=== PATIENT | female | born 1995 | race Hispanic/Latino ===

== ENCOUNTER 2018-12-08 10:42 | Emergency (ER) | payer OTHER, SELFPAY ==
[2018-12-08 10:50] VITALS: BP 144/81; PULSE 88; RESP 16; TEMP 36.6; O2SAT 100
--- NOTE | 2018-12-08 10:56 | DI.US.S_ITS ---
PROCEDURE: US OB <= 14 WEEKS FETUS INDICATIONS: Pelvic pain, . OUTSIDE/PRIOR DATING DATA: Last menstrual period (LMP): 10/11/18. LMP-based estimated date of delivery (GARRETT): 07/18/19. First dating scan (date and location): 12/08/18. Estimated date of delivery (GARRETT) from first dating scan: 07/20/19. TECHNIQUE: Real-time scanning was performed of the fetus and maternal pelvic organs, with image documentation. Endovaginal scanning was also performed to better visualize the fetus and maternal ovaries. COMPARISON: None. FINDINGS: Embryo: Single live intrauterine is identified with cardiac motion detected at 160 beats per minute. A yolk sac is well-visualized. A pole is also well-visualized with a corresponding crown-rump length of 1.6 cm, which correlates with an estimated gestational age of 8 weeks 0 days. A small to moderate-sized subchorionic hemorrhage is identified that encompasses approximately 30% of the gestational sac. Maternal organs: Ovaries are unremarkable. Limited images through the kidneys demonstrate no hydronephrosis. IMPRESSION: 1. Single live intrauterine at 8 weeks 0 days (GARRETT 07/20/19) is concordant with the LMP due date. 2. Small to moderate size subchorionic hemorrhage. The need for followup imaging should be based on clinical grounds. Dictated by: Twan Gordon M.D. on 12/08/2018 at 10:59 Approved by: Twan Gordon M.D. on 12/08/2018 at 11:03
[2018-12-08 11:20] LABS: Add Manual Diff / Slide Review NO; Basophils Absolute Auto 0 /uL (0-100); Basophils Percent Auto 0.2 % (0-2); Eosinophils Absolute Auto 100 /uL (0-450); Eosinophils Percent Auto 1.5 % (2-4); Hemoglobin 14.5 g/dL (12.0-16.0); Lymphocytes Absolute Auto 1600 /uL (1100-4500); Lymphocytes Percent Auto 23.5 % (25-40); Mean Corpuscular HGB Conc 34.5 % (30-36); Mean Corpuscular Volume 83.8 fL (80-100); Monocytes Absolute Auto 600 /uL (0-900); Monocytes Percent Auto 8.9 % (3-14); Neutrophils Absolute Auto 4600 /uL (1500-7000); Neutrophils Percent Auto 65.9 % (50-75); Platelet Count 208 X10^3/uL (150-400); Red Blood Cell Count 5.01 X10^6/uL (4.0-5.2)
[2018-12-08 11:38] LABS: Alanine Aminotransferase 17 IU/L (9-52); Albumin 4.3 g/dL (3.5-5.0); Albumin Globulin Ratio 1.2 (1.0-2.8); Alkaline Phosphatase 51 U/L (38-126); Aspartate Aminotransferase 22 IU/L (14-36); BUN Creatinine Ratio 13.3 (6-22); Bilirubin Total 0.7 mg/dL (0.2-1.3); Blood Urea Nitrogen 8 mg/dL (7-17); Calcium 9.3 mg/dL (8.4-10.2); Carbon Dioxide 26 mmol/L (22-32); Chloride 100 mmol/L (98-107); Estimated Glomerular Filt Rate > 60.0 mL/min (>60); Globulin 3.6 g/dL (1.7-4.1); Glucose 95 mg/dL (70-100); HEMOLYSIS < 15 (0-50); Potassium 4.6 mmol/L (3.4-5.1); Sodium 134 mmol/L (137-145); Total Protein 7.9 g/dL (6.3-8.2)
[2018-12-08 11:50] LABS: RBC Urine None Seen (0-5/HPF)
[2018-12-08 12:01] LABS: Squamous Epithelial Cell Urine 10-30 /HPF (0-5/HPF); WBC Urine 0-1/HPF (0-5/HPF)
[2018-12-08 12:02] LABS: Bacteria Urine Moderate (10-30)
--- NOTE | 2018-12-08 12:20 | ED.ABDPAIN ---
HPI - Abdominal Pain <EMORY Rai-BC - Last Filed: 12/08/18 15:07> General Chief Complaint: Abdominal Pain Stated Complaint: six weeks , abdominal pain Time Seen by Provider: 12/08/18 11:43 Source: patient and family Mode of arrival: ambulatory Limitations: no limitations History of Present Illness HPI narrative: The patient is a 23-year-old female Icelandic speaking well-appearing woman who presents with a chief complaint of abdominal pain. She states that she is approximately 6 weeks with last menstrual period on October 11. She had a positive home test [place] She is , with a living daughter. She states her pain is in her lower stomach, as well as upper stomach. She states that she has had nausea throughout this . She has not tried anything for it. Did she denies any fevers, vomiting or diarrhea. She denies any dysuria urgency or frequency. She denies any vaginal bleeding. She states she has some discharge, but that was evaluated at an outside facility on the of this month. She denies any possibility of sexually transmitted infections. The patient is Icelandic-speaking, declined a component assembler for both myself and nursing staff and stated she would rather have her friend translate. Related Data Home Medications Medication Instructions Recorded Confirmed PNV cmb#95-ferrous fumarate-FA 1 tab PO DAILY 12/08/18 12/08/18 [] Previous Rx's Medication Instructions Recorded cephalexin 500 mg PO BID #14 cap 12/08/18 ondansetron 4 mg PO Q6H PRN #20 tab 12/08/18 Allergies Allergy/AdvReac Type Severity Reaction Status Date / Time No Known Drug Allergies Allergy Verified 12/08/18 10:53 Review of Systems <JUNO RaiBC - Last Filed: 12/08/18 15:07> Review of Systems GENERAL: Denies chills, fatigue, malaise, fever, sweats. HEENT: Denies sinus pain, ear pain, sore throat, difficulty swallowing, dizziness. RESPIRATORY: Denies dyspnea, cough, wheezing, hemoptysis, sputum. CARDIOVASCULAR: Denies chest pain, palpitations, orthopnea, edema, GASTROINTESTINAL: See HPI : Denies dysuria, frequency, incontinence, hematuria, urinary retention. MUSCULOSKELETAL: denies weakness, joint pain, or bony pain SKIN: Denies rash, skin lesions, or other NEUROLOGIC: Denies weakness, headache, numbness, change in speech, confusion, seizures, incoordination. PSYCHIATRIC: No concerning psychosocial issues. 12 point review of systems is negative except for those stated above PFSH <EMORY Rai- - Last Filed: 12/08/18 15:07> Social History Smoking Status: Never smoker Social History Smoking Status: Never smoker Exam <EMORY Rai- - Last Filed: 12/08/18 15:07> Narrative Exam Narrative: GENERAL: This is a well-nourished, well-developed patient, in no acute distress HEAD: Atraumatic. Normocephalic. No temporal or scalp tenderness. EYES: Pupils equal round and reactive. Extraocular motions intact. No scleral icterus. No injection or drainage. ENT: Nose without bleeding, purulent drainage or septal hematoma. Throat without erythema, tonsillar hypertrophy or exudate. Uvula midline. Airway patent. NECK: Trachea midline. No JVD or lymphadenopathy. Supple, nontender, no meningeal signs. CARDIOVASCULAR: Regular rate and rhythm without murmurs, gallops, or rubs. RESPIRATORY: Clear to auscultation. Breath sounds equal bilaterally. No wheezes, rales, or rhonchi. No cough. No increased respiratory effort. No accessory muscle use. GASTROINTESTINAL: Abdomen soft, diffusely tender suprapubic and periumbilical area, nondistended. No hepato-splenomegaly, or palpable masses. No guarding. Soft nonrigid abdomen. Active bowel sounds all 4 quadrants. EXTREMITIES: No clubbing, cyanosis, or edema. No joint tenderness, effusion, or edema noted. BACK: Nontender without deformity or crepitance. No flank tenderness. NEURO: AOx3. SKIN: No rash or erythema. Initial Vital Signs Initial Vital Signs: Vital Signs Temperature 97.8 F 12/08/18 10:50 Pulse Rate 88 12/08/18 10:50 Respiratory Rate 16 12/08/18 10:50 Blood Pressure 144/81 H 12/08/18 10:50 Pulse Oximetry 100 12/08/18 10:50 <Rach Frederick DO - Last Filed: 12/09/18 06:11> Initial Vital Signs Initial Vital Signs: Vital Signs Temperature 97.8 F 12/08/18 10:50 Pulse Rate 88 12/08/18 10:50 Respiratory Rate 16 12/08/18 10:50 Blood Pressure 144/81 H 12/08/18 10:50 Pulse Oximetry 100 12/08/18 10:50 Course <HAM Rai - Last Filed: 12/08/18 15:07> Orders Ordered: Discontinued Medications Calcium Carbonate (Tums) 500 mg PO NOW ONE Stop: 12/08/18 11:59 Last Admin: 12/08/18 12:38 Dose: 500 mg Ondansetron HCl (Zofran Odt) 4 mg SL NOW ONE Stop: 12/08/18 11:59 Last Admin: 12/08/18 12:38 Dose: 4 mg Vital Signs - 8 hr 12/08/18 10:50 12/08/18 13:10 Temperature 97.8 F Pulse Rate 88 90 Respiratory Rate 16 12 Blood Pressure 144/81 H Blood Pressure [Left Arm] 112/78 Pulse Oximetry 100 98 <Rach Frederick DO - Last Filed: 12/09/18 06:11> Orders Ordered: Discontinued Medications Calcium Carbonate (Tums) 500 mg PO NOW ONE Stop: 12/08/18 11:59 Last Admin: 12/08/18 12:38 Dose: 500 mg Ondansetron HCl (Zofran Odt) 4 mg SL NOW ONE Stop: 12/08/18 11:59 Last Admin: 12/08/18 12:38 Dose: 4 mg Vital Signs - 8 hr 12/08/18 10:50 12/08/18 13:10 Temperature 97.8 F Pulse Rate 88 90 Respiratory Rate 16 12 Blood Pressure 144/81 H Blood Pressure [Left Arm] 112/78 Pulse Oximetry 100 98 MDM - Abdominal Pain <HAM Rai - Last Filed: 12/08/18 15:07> Lab Data Result diagrams: 12/08/18 11:10 12/08/18 11:10 Lab Results 12/08/18 12/08/18 12/08/18 Range/Units 11:10 11:10 11:10 WBC 7.0 (4.5-11.0) X10^3/uL RBC 5.01 (4.0-5.2) X10^6/uL Hgb 14.5 (12.0-16.0) g/dL Hct 42.0 (36-46) % MCV 83.8 (80-100) fL MCH 29.0 (26-34) PG MCHC 34.5 (30-36) % RDW 13.0 (11.6-14.8) % Plt Count 208 (150-400) X10^3/uL Neut % (Auto) 65.9 (50-75) % Lymph % (Auto) 23.5 L (25-40) % Martin % (Auto) 8.9 (3-14) % Eos % (Auto) 1.5 L (2-4) % Baso % (Auto) 0.2 (0-2) % Neut # (Auto) 4600 (6149-5538) /uL Lymph # (Auto) 1600 (1909-6629) /uL Martin # (Auto) 600 (0-900) /uL Eos # (Auto) 100 (0-450) /uL Baso # (Auto) 0 (0-100) /uL Sodium 134 L (137-145) mmol/L Potassium 4.6 (3.4-5.1) mmol/L Chloride 100 (98-107) mmol/L Carbon Dioxide 26 (22-32) mmol/L BUN 8 (7-17) mg/dL Creatinine 0.60 (0.52-1.04) mg/dL Estimated GFR > 60.0 (>60) mL/min BUN/Creatinine Ratio 13.3 (6-22) Glucose 95 (70-100) mg/dL Calcium 9.3 (8.4-10.2) mg/dL Total Bilirubin 0.7 (0.2-1.3) mg/dL AST 22 (14-36) IU/L ALT 17 (9-52) IU/L Alkaline Phosphatase 51 (38-126) U/L Total Protein 7.9 (6.3-8.2) g/dL Albumin 4.3 (3.5-5.0) g/dL Globulin 3.6 (1.7-4.1) g/dL Albumin/Globulin Ratio 1.2 (1.0-2.8) HCG, Quant 183852 mIU/mL Urine RBC (0-5/HPF) Urine WBC (0-5/HPF) Ur Squamous Epith Cells (0-5/HPF) Urine Bacteria (None) Ur Culture Indicated? Micro UA Comment Blood Type O Positive 12/08/18 Range/Units 11:14 WBC (4.5-11.0) X10^3/uL RBC (4.0-5.2) X10^6/uL Hgb (12.0-16.0) g/dL Hct (36-46) % MCV (80-100) fL MCH (26-34) PG MCHC (30-36) % RDW (11.6-14.8) % Plt Count (150-400) X10^3/uL Neut % (Auto) (50-75) % Lymph % (Auto) (25-40) % Martin % (Auto) (3-14) % Eos % (Auto) (2-4) % Baso % (Auto) (0-2) % Neut # (Auto) (8695-2786) /uL Lymph # (Auto) (9180-0071) /uL Martin # (Auto) (0-900) /uL Eos # (Auto) (0-450) /uL Baso # (Auto) (0-100) /uL Sodium (137-145) mmol/L Potassium (3.4-5.1) mmol/L Chloride (98-107) mmol/L Carbon Dioxide (22-32) mmol/L BUN (7-17) mg/dL Creatinine (0.52-1.04) mg/dL Estimated GFR (>60) mL/min BUN/Creatinine Ratio (6-22) Glucose (70-100) mg/dL Calcium (8.4-10.2) mg/dL Total Bilirubin (0.2-1.3) mg/dL AST (14-36) IU/L ALT (9-52) IU/L Alkaline Phosphatase (38-126) U/L Total Protein (6.3-8.2) g/dL Albumin (3.5-5.0) g/dL Globulin (1.7-4.1) g/dL Albumin/Globulin Ratio (1.0-2.8) HCG, Quant mIU/mL Urine RBC None seen (0-5/HPF) Urine WBC 0-1/hpf (0-5/HPF) Ur Squamous Epith Cells 10-30 /hpf H (0-5/HPF) Urine Bacteria Moderate (10-30) H (None) Ur Culture Indicated? Culture not indicate Micro UA Comment Blood Type Point of care testing: Point of Care Testing Test Results Positive Urine Dip Bedside Urine Glucose Negative Bedside Urine Bilirubin - Negative Bedside Urine Ketone - Negative Urine Specific [place] 1.020 Bedside Urine Occult Blood - Negative Bedside Urine pH 6.0 Bedside Urine Protein - Negative Bedside Urine Urobilinogen - Negative Bedside Urine Nitrite - Negative Bedside Urine Leukocytes +/- 15 Esterase Imaging Data us: Radiologist's impression: [address] [address] Ultrasound Report Signed Patient: Praveena Roe [facility]#: [id number] : 1995Acct:[id number] Age/Sex: 23 FDate of Service: 12/08/18 Loc: ED Accession Number: [id number] Procedure: US OB <= 14 weeks fetus Ordering Provider: Rach Frederick D.O. PROCEDURE: US OB <= 14 WEEKS FETUS INDICATIONS: Pelvic pain, . OUTSIDE/PRIOR DATING DATA: Last menstrual period (LMP): 10/11/18. LMP-based estimated date of delivery (GARRETT): 07/18/19. First dating scan (date and location): 12/08/18. Estimated date of delivery (GARRETT) from first dating scan: 07/20/19. TECHNIQUE: Real-time scanning was performed of the fetus and maternal pelvic organs, with image documentation. Endovaginal scanning was also performed to better visualize the fetus and maternal ovaries. COMPARISON: None. FINDINGS: Embryo: Single live intrauterine is identified with cardiac motion detected at 160 beats per minute. A yolk sac is well-visualized. A pole is also well-visualized with a corresponding crown-rump length of 1.6 cm, which correlates with an estimated gestational age of 8 weeks 0 days. A small to moderate-sized subchorionic hemorrhage is identified that encompasses approximately 30% of the gestational sac. Maternal organs: Ovaries are unremarkable. Limited images through the kidneys demonstrate no hydronephrosis. IMPRESSION: 1. Single live intrauterine at 8 weeks 0 days (GARRETT 07/20/19) is concordant with the LMP due date. 2. Small to moderate size subchorionic hemorrhage. The need for followup imaging should be based on clinical grounds. Dictated by: Twan Gordon M.D. on 12/08/2018 at 10:59 Approved by: Twan Gordon M.D. on 12/08/2018 at 11:03 [facility] Narrative Medical decision making narrative: The patient is a 23-year-old female presents with abdominal pain during . Her urine is concerning for urinary tract infection, so I started her on cephalexin. Her ultrasound is normal other than a small subchorionic hemorrhage. However she denies any vaginal bleeding at this point time. I discussed at length follow up with her PCP OB. We have urine culture pending at this time. I discussed coming back to the ER for any acute concerns such as flank pain, high fever, inability keep down fluids etc. I did give her small prescription of Zofran as well. Patient has no questions or concerns upon discharge and states plan of follow-up as well as return precautions. <Rach Frederick, DO - Last Filed: 12/09/18 06:11> Lab Data Lab Results 12/08/18 12/08/18 12/08/18 Range/Units 11:10 11:10 11:10 WBC 7.0 (4.5-11.0) X10^3/uL RBC 5.01 (4.0-5.2) X10^6/uL Hgb 14.5 (12.0-16.0) g/dL Hct 42.0 (36-46) % MCV 83.8 (80-100) fL MCH 29.0 (26-34) PG MCHC 34.5 (30-36) % RDW 13.0 (11.6-14.8) % Plt Count 208 (150-400) X10^3/uL Neut % (Auto) 65.9 (50-75) % Lymph % (Auto) 23.5 L (25-40) % Martin % (Auto) 8.9 (3-14) % Eos % (Auto) 1.5 L (2-4) % Baso % (Auto) 0.2 (0-2) % Neut # (Auto) 4600 (1218-9559) /uL Lymph # (Auto) 1600 (1047-7673) /uL Martin # (Auto) 600 (0-900) /uL Eos # (Auto) 100 (0-450) /uL Baso # (Auto) 0 (0-100) /uL Sodium 134 L (137-145) mmol/L Potassium 4.6 (3.4-5.1) mmol/L Chloride 100 (98-107) mmol/L Carbon Dioxide 26 (22-32) mmol/L BUN 8 (7-17) mg/dL Creatinine 0.60 (0.52-1.04) mg/dL Estimated GFR > 60.0 (>60) mL/min BUN/Creatinine Ratio 13.3 (6-22) Glucose 95 (70-100) mg/dL Calcium 9.3 (8.4-10.2) mg/dL Total Bilirubin 0.7 (0.2-1.3) mg/dL AST 22 (14-36) IU/L ALT 17 (9-52) IU/L Alkaline Phosphatase 51 (38-126) U/L Total Protein 7.9 (6.3-8.2) g/dL Albumin 4.3 (3.5-5.0) g/dL Globulin 3.6 (1.7-4.1) g/dL Albumin/Globulin Ratio 1.2 (1.0-2.8) HCG, Quant 798017 mIU/mL Urine RBC (0-5/HPF) Urine WBC (0-5/HPF) Ur Squamous Epith Cells (0-5/HPF) Urine Bacteria (None) Ur Culture Indicated? Micro UA Comment Blood Type O Positive 12/08/18 Range/Units 11:14 WBC (4.5-11.0) X10^3/uL RBC (4.0-5.2) X10^6/uL Hgb (12.0-16.0) g/dL Hct (36-46) % MCV (80-100) fL MCH (26-34) PG MCHC (30-36) % RDW (11.6-14.8) % Plt Count (150-400) X10^3/uL Neut % (Auto) (50-75) % Lymph % (Auto) (25-40) % Martin % (Auto) (3-14) % Eos % (Auto) (2-4) % Baso % (Auto) (0-2) % Neut # (Auto) (0557-9832) /uL Lymph # (Auto) (6216-7772) /uL Martin # (Auto) (0-900) /uL Eos # (Auto) (0-450) /uL Baso # (Auto) (0-100) /uL Sodium (137-145) mmol/L Potassium (3.4-5.1) mmol/L Chloride (98-107) mmol/L Carbon Dioxide (22-32) mmol/L BUN (7-17) mg/dL Creatinine (0.52-1.04) mg/dL Estimated GFR (>60) mL/min BUN/Creatinine Ratio (6-22) Glucose (70-100) mg/dL Calcium (8.4-10.2) mg/dL Total Bilirubin (0.2-1.3) mg/dL AST (14-36) IU/L ALT (9-52) IU/L Alkaline Phosphatase (38-126) U/L Total Protein (6.3-8.2) g/dL Albumin (3.5-5.0) g/dL Globulin (1.7-4.1) g/dL Albumin/Globulin Ratio (1.0-2.8) HCG, Quant mIU/mL Urine RBC None seen (0-5/HPF) Urine WBC 0-1/hpf (0-5/HPF) Ur Squamous Epith Cells 10-30 /hpf H (0-5/HPF) Urine Bacteria Moderate (10-30) H (None) Ur Culture Indicated? Culture not indicate Micro UA Comment Blood Type Point of care testing: Point of Care Testing Test Results Positive Urine Dip Bedside Urine Glucose Negative Bedside Urine Bilirubin - Negative Bedside Urine Ketone - Negative Urine Specific [place] 1.020 Bedside Urine Occult Blood - Negative Bedside Urine pH 6.0 Bedside Urine Protein - Negative Bedside Urine Urobilinogen - Negative Bedside Urine Nitrite - Negative Bedside Urine Leukocytes +/- 15 Esterase Discharge Plan Departure Patient Disposition: Home Clinical Impression: UTI (urinary tract infection) during Qualifiers: Trimester: first trimester Qualified Code(s): O23.41 - Unspecified infection of urinary tract in , first trimester Discharge Date/Time: 12/08/18 13:12 Interventions: ED Discharge Assessment Last Done: 12/08/18 13:11 Instructions: DI for Urinary Tract Infection (UTI), DI for Vaginal Bleeding During , DI for Abdominal Pain -- Early Activity Restrictions/Additional Instructions: Your urine test today is concerning for a urinary tract infection. I have given you a prescription of antibiotics. Your ultrasound shows an 8 week . There is a small subchorionic hemorrhage. Please follow up with her primary care OB. Please monitor for worsening such as flank pain and fever. Please come back to the emergency department for any acute concerns. Please call your PCP/PCP OB for follow-up in the next few days. Prescriptions: New cephalexin 500 mg capsule 500 mg PO BID Qty: 14 RF: 0 ondansetron 4 mg tablet,disintegrating 4 mg PO Q6H PRN (Reason: nausea and vomiting) Qty: 20 RF: 0 No Action PNV cmb#95-ferrous fumarate-FA [] 28 mg iron- 800 mcg tablet 1 tab PO DAILY RF: 0 Referrals: [facility] [employer]IN[employer] INVESTIGATOR [Provider Group] <Rach Frederick DO - Last Filed: 12/09/18 06:11> Cosign ED Attending Cosignature Attestation: I was immediately available in the department for consultation. This documentation has been reviewed and I agree with assessment and plan. Supervised by Rach Frederick DO
--- NOTE | 2018-12-08 12:25 | ED_ITS ---
HPI - Abdominal Pain <EMORY Rai-BC - Last Filed: 12/08/18 15:07> General Chief Complaint: Abdominal Pain Stated Complaint: six weeks , abdominal pain Time Seen by Provider: 12/08/18 11:43 Source: patient and family Mode of arrival: ambulatory Limitations: no limitations History of Present Illness HPI narrative: The patient is a 23-year-old female [place]ian speaking [facility] who presents with a chief complaint of abdominal pain. She states that she is approximately 6 weeks with last menstrual period on October 11. She had a positive home test and [place] She is , with a living daughter. She states her pain is in her lower stomach, as well as upper stomach. She states that she has had nausea throughout this . She has not tried anything for it. Did she denies any fevers, vomiting or diarrhea. She denies any dysuria urgency or frequency. She denies any vaginal bleeding. She states she has some discharge, but that was evaluated at an outside facility on the of this month. She denies any possibility of sexually transmitted infections. The patient is [place]ian- speaking, declined a financial reporting analyst for both myself and nursing staff and stated she would rather have her friend translate. Related Data Home Medications Medication Instructions Recorded Confirmed PNV cmb#95-ferrous fumarate-FA 1 tab PO DAILY 12/08/18 12/08/18 [] Previous Rx's Medication Instructions Recorded cephalexin 500 mg PO BID #14 cap 12/08/18 ondansetron 4 mg PO Q6H PRN #20 tab 12/08/18 Allergies Allergy/AdvReac Type Severity Reaction Status Date / Time No Known Drug Allergies Allergy Verified 12/08/18 10:53 Review of Systems <JUNO RaiBC - Last Filed: 12/08/18 15:07> Review of Systems GENERAL: Denies chills, fatigue, malaise, fever, sweats. HEENT: Denies sinus pain, ear pain, sore throat, difficulty swallowing, dizziness. RESPIRATORY: Denies dyspnea, cough, wheezing, hemoptysis, sputum. CARDIOVASCULAR: Denies chest pain, palpitations, orthopnea, edema, GASTROINTESTINAL: See HPI : Denies dysuria, frequency, incontinence, hematuria, urinary retention. MUSCULOSKELETAL: denies weakness, joint pain, or bony pain SKIN: Denies rash, skin lesions, or other NEUROLOGIC: Denies weakness, headache, numbness, change in speech, confusion, seizures, incoordination. PSYCHIATRIC: No concerning psychosocial issues. 12 point review of systems is negative except for those stated above PFSH <EMORY Rai- - Last Filed: 12/08/18 15:07> Social History Smoking Status: Never smoker Social History Smoking Status: Never smoker Exam <EMORY Rai- - Last Filed: 12/08/18 15:07> Narrative Exam Narrative: GENERAL: This is a well-nourished, well-developed patient, in no acute distress HEAD: Atraumatic. Normocephalic. No temporal or scalp tenderness. EYES: Pupils equal round and reactive. Extraocular motions intact. No scleral icterus. No injection or drainage. ENT: Nose without bleeding, purulent drainage or septal hematoma. Throat without erythema, tonsillar hypertrophy or exudate. Uvula midline. Airway patent. NECK: Trachea midline. No JVD or lymphadenopathy. Supple, nontender, no meningeal signs. CARDIOVASCULAR: Regular rate and rhythm without murmurs, gallops, or rubs. RESPIRATORY: Clear to auscultation. Breath sounds equal bilaterally. No wheezes, rales, or rhonchi. No cough. No increased respiratory effort. No accessory muscle use. GASTROINTESTINAL: Abdomen soft, diffusely tender suprapubic and periumbilical area, nondistended. No hepato-splenomegaly, or palpable masses. No guarding. Soft nonrigid abdomen. Active bowel sounds all 4 quadrants. EXTREMITIES: No clubbing, cyanosis, or edema. No joint tenderness, effusion, or edema noted. BACK: Nontender without deformity or crepitance. No flank tenderness. NEURO: AOx3. SKIN: No rash or erythema. Initial Vital Signs Initial Vital Signs: Vital Signs Temperature 97.8 F 12/08/18 10:50 Pulse Rate 88 12/08/18 10:50 Respiratory Rate 16 12/08/18 10:50 Blood Pressure 144/81 H 12/08/18 10:50 Pulse Oximetry 100 12/08/18 10:50 <Rach Frederick DO - Last Filed: 12/09/18 06:11> Initial Vital Signs Initial Vital Signs: Vital Signs Temperature 97.8 F 12/08/18 10:50 Pulse Rate 88 12/08/18 10:50 Respiratory Rate 16 12/08/18 10:50 Blood Pressure 144/81 H 12/08/18 10:50 Pulse Oximetry 100 12/08/18 10:50 Course <HAM Rai - Last Filed: 12/08/18 15:07> Orders Ordered: Discontinued Medications Calcium Carbonate (Tums) 500 mg PO NOW ONE Stop: 12/08/18 11:59 Last Admin: 12/08/18 12:38 Dose: 500 mg Ondansetron HCl (Zofran Odt) 4 mg SL NOW ONE Stop: 12/08/18 11:59 Last Admin: 12/08/18 12:38 Dose: 4 mg Vital Signs - 8 hr 12/08/18 10:50 12/08/18 13:10 Temperature 97.8 F Pulse Rate 88 90 Respiratory Rate 16 12 Blood Pressure 144/81 H Blood Pressure [Left Arm] 112/78 Pulse Oximetry 100 98 <Rach Frederick DO - Last Filed: 12/09/18 06:11> Orders Ordered: Discontinued Medications Calcium Carbonate (Tums) 500 mg PO NOW ONE Stop: 12/08/18 11:59 Last Admin: 12/08/18 12:38 Dose: 500 mg Ondansetron HCl (Zofran Odt) 4 mg SL NOW ONE Stop: 12/08/18 11:59 Last Admin: 12/08/18 12:38 Dose: 4 mg Vital Signs - 8 hr 12/08/18 10:50 12/08/18 13:10 Temperature 97.8 F Pulse Rate 88 90 Respiratory Rate 16 12 Blood Pressure 144/81 H Blood Pressure [Left Arm] 112/78 Pulse Oximetry 100 98 MDM - Abdominal Pain <HAM Rai - Last Filed: 12/08/18 15:07> Lab Data Result diagrams: 12/08/18 11:10 12/08/18 11:10 Lab Results 12/08/18 12/08/18 12/08/18 Range/Units 11:10 11:10 11:10 WBC 7.0 (4.5-11.0) X10^3/uL RBC 5.01 (4.0-5.2) X10^6/uL Hgb 14.5 (12.0-16.0) g/dL Hct 42.0 (36-46) % MCV 83.8 (80-100) fL MCH 29.0 (26-34) PG MCHC 34.5 (30-36) % RDW 13.0 (11.6-14.8) % Plt Count 208 (150-400) X10^3/uL Neut % (Auto) 65.9 (50-75) % Lymph % (Auto) 23.5 L (25-40) % [place] % (Auto) 8.9 (3-14) % Eos % (Auto) 1.5 L (2-4) % Baso % (Auto) 0.2 (0-2) % Neut # (Auto) 4600 (9332-7820) /uL Lymph # (Auto) 1600 (7331-9633) /uL [place] # (Auto) 600 (0-900) /uL Eos # (Auto) 100 (0-450) /uL Baso # (Auto) 0 (0-100) /uL Sodium 134 L (137-145) mmol/L Potassium 4.6 (3.4-5.1) mmol/L Chloride 100 (98-107) mmol/L Carbon Dioxide 26 (22-32) mmol/L BUN 8 (7-17) mg/dL Creatinine 0.60 (0.52-1.04) mg/dL Estimated GFR > 60.0 (>60) mL/min BUN/Creatinine Ratio 13.3 (6-22) Glucose 95 (70-100) mg/dL Calcium 9.3 (8.4-10.2) mg/dL Total Bilirubin 0.7 (0.2-1.3) mg/dL AST 22 (14-36) IU/L ALT 17 (9-52) IU/L Alkaline Phosphatase 51 (38-126) U/L Total Protein 7.9 (6.3-8.2) g/dL Albumin 4.3 (3.5-5.0) g/dL Globulin 3.6 (1.7-4.1) g/dL Albumin/Globulin Ratio 1.2 (1.0-2.8) HCG, Quant 471936 mIU/mL Urine RBC (0-5/HPF) Urine WBC (0-5/HPF) Ur Squamous Epith Cells (0-5/HPF) Urine Bacteria (None) Ur Culture Indicated? Micro UA Comment Blood Type O Positive 12/08/18 Range/Units 11:14 WBC (4.5-11.0) X10^3/uL RBC (4.0-5.2) X10^6/uL Hgb (12.0-16.0) g/dL Hct (36-46) % MCV (80-100) fL MCH (26-34) PG MCHC (30-36) % RDW (11.6-14.8) % Plt Count (150-400) X10^3/uL Neut % (Auto) (50-75) % Lymph % (Auto) (25-40) % [place] % (Auto) (3-14) % Eos % (Auto) (2-4) % Baso % (Auto) (0-2) % Neut # (Auto) (3223-4968) /uL Lymph # (Auto) (1406-8022) /uL [place] # (Auto) (0-900) /uL Eos # (Auto) (0-450) /uL Baso # (Auto) (0-100) /uL Sodium (137-145) mmol/L Potassium (3.4-5.1) mmol/L Chloride (98-107) mmol/L Carbon Dioxide (22-32) mmol/L BUN (7-17) mg/dL Creatinine (0.52-1.04) mg/dL Estimated GFR (>60) mL/min BUN/Creatinine Ratio (6-22) Glucose (70-100) mg/dL Calcium (8.4-10.2) mg/dL Total Bilirubin (0.2-1.3) mg/dL AST (14-36) IU/L ALT (9-52) IU/L Alkaline Phosphatase (38-126) U/L Total Protein (6.3-8.2) g/dL Albumin (3.5-5.0) g/dL Globulin (1.7-4.1) g/dL Albumin/Globulin Ratio (1.0-2.8) HCG, Quant mIU/mL Urine RBC None seen (0-5/HPF) Urine WBC 0-1/hpf (0-5/HPF) Ur Squamous Epith Cells 10-30 /hpf H (0-5/HPF) Urine Bacteria Moderate (10-30) H (None) Ur Culture Indicated? Culture not indicate Micro UA Comment Blood Type Point of care testing: Point of Care Testing Test Results Positive Urine Dip Bedside Urine Glucose Negative Bedside Urine Bilirubin - Negative Bedside Urine Ketone - Negative Urine Specific [place] 1.020 Bedside Urine Occult Blood - Negative Bedside Urine pH 6.0 Bedside Urine Protein - Negative Bedside Urine Urobilinogen - Negative Bedside Urine Nitrite - Negative Bedside Urine Leukocytes +/- 15 Esterase Imaging Data us: Radiologist's impression: [address] [address] Ultrasound Report Signed Patient: Praveena Roe [facility]#: [id number] : 1995Acct:[id number] Age/Sex: FDate of Service: 12/08/18 Loc: ED Accession Number: [id number] Procedure: US OB <= 14 weeks fetus Ordering Provider: Rach Frederick D.O. PROCEDURE: US OB <= 14 WEEKS FETUS INDICATIONS: Pelvic pain, . OUTSIDE/PRIOR DATING DATA: Last menstrual period (LMP): 10/11/18. LMP-based estimated date of delivery (GARRETT): 07/18/19. First dating scan (date and location): 12/08/18. Estimated date of delivery (GARRETT) from first dating scan: 07/20/19. TECHNIQUE: Real-time scanning was performed of the fetus and maternal pelvic organs, with image documentation. Endovaginal scanning was also performed to better visualize the fetus and maternal ovaries. COMPARISON: None. FINDINGS: Embryo: Single live intrauterine is identified with cardiac motion detected at 160 beats per minute. A yolk sac is well-visualized. A pole is also well-visualized with a corresponding crown-rump length of 1.6 cm, which correlat es with an estimated gestational age of 8 weeks 0 days. A small to moderate-sized subchorionic hemorrhage is identified that encompasses approximately 30% of the gestational sac. Maternal organs: Ovaries are unremarkable. Limited images through the kidneys demonstrate no hydronephrosis. IMPRESSION: 1. Single live intrauterine at 8 weeks 0 days (GARRETT 07/20/19) is concordant with the LMP due date. 2. Small to moderate size subchorionic hemorrhage. The need for followup imag ing should be based on clinical grounds. Dictated by: Twan Gordon M.D. on 12/08/2018 at 10:59 Approved by: Twan Gordon M.D. on 12/08/2018 at 11:03 [facility] Narrative Medical decision making narrative: The patient is a 23-year-old female presents with abdominal pain during . Her urine is concerning for urinary tract infection, so I started her on cephalexin. Her ultrasound is normal other than a small subchorionic hemorrhage. However she denies any vaginal bleeding at this point time. I discussed at length follow up with her PCP OB. We have urine culture pending at this time. I discussed coming back to the ER for any acute concerns such as flank pain, high fever, inability keep down fluids etc. I did give her small prescription of Zofran as well. Patient has no questions or concerns upon discharge and states plan of follow-up as well as return precautions. <Rach Frederick, DO - Last Filed: 12/09/18 06:11> Lab Data Lab Results 12/08/18 12/08/18 12/08/18 Range/Units 11:10 11:10 11:10 WBC 7.0 (4.5-11.0) X10^3/uL RBC 5.01 (4.0-5.2) X10^6/uL Hgb 14.5 (12.0-16.0) g/dL Hct 42.0 (36-46) % MCV 83.8 (80-100) fL MCH 29.0 (26-34) PG MCHC 34.5 (30-36) % RDW 13.0 (11.6-14.8) % Plt Count 208 (150-400) X10^3/uL Neut % (Auto) 65.9 (50-75) % Lymph % (Auto) 23.5 L (25-40) % [place] % (Auto) 8.9 (3-14) % Eos % (Auto) 1.5 L (2-4) % Baso % (Auto) 0.2 (0-2) % Neut # (Auto) 4600 (8987-6207) /uL Lymph # (Auto) 1600 (3576-9916) /uL [place] # (Auto) 600 (0-900) /uL Eos # (Auto) 100 (0-450) /uL Baso # (Auto) 0 (0-100) /uL Sodium 134 L (137-145) mmol/L Potassium 4.6 (3.4-5.1) mmol/L Chloride 100 (98-107) mmol/L Carbon Dioxide 26 (22-32) mmol/L BUN 8 (7-17) mg/dL Creatinine 0.60 (0.52-1.04) mg/dL Estimated GFR > 60.0 (>60) mL/min BUN/Creatinine Ratio 13.3 (6-22) Glucose 95 (70-100) mg/dL Calcium 9.3 (8.4-10.2) mg/dL Total Bilirubin 0.7 (0.2-1.3) mg/dL AST 22 (14-36) IU/L ALT 17 (9-52) IU/L Alkaline Phosphatase 51 (38-126) U/L Total Protein 7.9 (6.3-8.2) g/dL Albumin 4.3 (3.5-5.0) g/dL Globulin 3.6 (1.7-4.1) g/dL Albumin/Globulin Ratio 1.2 (1.0-2.8) HCG, Quant 533611 mIU/mL Urine RBC (0-5/HPF) Urine WBC (0-5/HPF) Ur Squamous Epith Cells (0-5/HPF) Urine Bacteria (None) Ur Culture Indicated? Micro UA Comment Blood Type O Positive 12/08/18 Range/Units 11:14 WBC (4.5-11.0) X10^3/uL RBC (4.0-5.2) X10^6/uL Hgb (12.0-16.0) g/dL Hct (36-46) % MCV (80-100) fL MCH (26-34) PG MCHC (30-36) % RDW (11.6-14.8) % Plt Count (150-400) X10^3/uL Neut % (Auto) (50-75) % Lymph % (Auto) (25-40) % [place] % (Auto) (3-14) % Eos % (Auto) (2-4) % Baso % (Auto) (0-2) % Neut # (Auto) (6697-1880) /uL Lymph # (Auto) (8767-4346) /uL [place] # (Auto) (0-900) /uL Eos # (Auto) (0-450) /uL Baso # (Auto) (0-100) /uL Sodium (137-145) mmol/L Potassium (3.4-5.1) mmol/L Chloride (98-107) mmol/L Carbon Dioxide (22-32) mmol/L BUN (7-17) mg/dL Creatinine (0.52-1.04) mg/dL Estimated GFR (>60) mL/min BUN/Creatinine Ratio (6-22) Glucose (70-100) mg/dL Calcium (8.4-10.2) mg/dL Total Bilirubin (0.2-1.3) mg/dL AST (14-36) IU/L ALT (9-52) IU/L Alkaline Phosphatase (38-126) U/L Total Protein (6.3-8.2) g/dL Albumin (3.5-5.0) g/dL Globulin (1.7-4.1) g/dL Albumin/Globulin Ratio (1.0-2.8) HCG, Quant mIU/mL Urine RBC None seen (0-5/HPF) Urine WBC 0-1/hpf (0-5/HPF) Ur Squamous Epith Cells 10-30 /hpf H (0-5/HPF) Urine Bacteria Moderate (10-30) H (None) Ur Culture Indicated? Culture not indicate Micro UA Comment Blood Type Point of care testing: Point of Care Testing Test Results Positive Urine Dip Bedside Urine Glucose Negative Bedside Urine Bilirubin - Negative Bedside Urine Ketone - Negative Urine Specific [place] 1.020 Bedside Urine Occult Blood - Negative Bedside Urine pH 6.0 Bedside Urine Protein - Negative Bedside Urine Urobilinogen - Negative Bedside Urine Nitrite - Negative Bedside Urine Leukocytes +/- 15 Esterase Discharge Plan Departure Patient Disposition: Home Clinical Impression: UTI (urinary tract infection) during Qualifiers: Trimester: first trimester Qualified Code(s): O23.41 - Unspecified infection of urinary tract in , first trimester Discharge Date/Time: 12/08/18 13:12 Interventions: ED Discharge Assessment Last Done: 12/08/18 13:11 Instructions: DI for Urinary Tract Infection (UTI), DI for Vaginal Bleeding During , DI for Abdominal Pain -- Early Activity Restrictions/Additional Instructions: Your urine test today is concerning for a urinary tract infection. I have given you a prescription of antibiotics. Your ultrasound shows an 8 week . There is a small subchorionic hemorrhage. Please follow up with her primary care OB. Please monitor for worsening such as flank pain and fever. Please come back to the emergency department for any acute concerns. Please call your PCP/PCP OB for follow-up in the next few days. Prescriptions: New cephalexin 500 mg capsule 500 mg PO BID Qty: 14 RF: 0 ondansetron 4 mg tablet,disintegrating 4 mg PO Q6H PRN (Reason: nausea and vomiting) Qty: 20 RF: 0 No Action PNV cmb#95-ferrous fumarate-FA [] 28 mg iron- 800 mcg tablet 1 tab PO DAILY RF: 0 Referrals: [facility] [Provider Group] <Rach Frederick DO - Last Filed: 12/09/18 06:11> Cosign ED Attending Cosignature Attestation: I was immediately available in the department for consultation. This documentation has been reviewed and I agree with assessment and plan. Supervised by Rach Frederick DO
[2018-12-08] MEDS: CALCIUM CARBONATE 500 MG TAB PO (12:38)
[2018-12-08] MEDS: ONDANSETRON 4 MG ODT SL (12:38)
[2018-12-08 12:54] LABS: HCG Quantitative /Beta subunit 151200 mIU/mL
[2018-12-08 13:10] VITALS: BP 112/78; PULSE 90; RESP 12; O2SAT 98
== END 2018-12-08 13:12 | disposition home or self-care (01) ==
PROVIDERS: Emergency Medicine; Emergency Provider Nurse Practitioner Family
DX: O23.41 Unspecified infection of urinary tract in pregnancy, first trimester (principal); Z3A.01 Less than 8 weeks gestation of pregnancy
CPT/HCPCS: 36415; 76801; 76817; 80053; 81003; 81015; 81025; 84702; 85025; 86900; 86901; 87086; 99282; 99284